=== PATIENT | female | born 1940 | race Caucasian/White ===

== ENCOUNTER 2019-09-19 15:09 | Inpatient (IN) | payer MEDICARE, OTHER ==
[~2019-09-19] VITALS: Ht 167.6 cm; Wt 69.4 kg
[2019-09-19 15:32] LABS: BASOPHILS # (AUTO) 0.1 K/uL (0.0-8.0); BASOPHILS % (AUTO) 1.4 % (0.0-2.0); EOSINOPHILS # (AUTO) 0.2 K/uL (0.0-0.7); EOSINOPHILS % (AUTO) 2.1 % (0.0-7.0); HEMATOCRIT 39.9 % (31.2-41.9); HEMOGLOBIN 13.8 g/dL (10.9-14.3); LYMPHOCYTES # (AUTO) 3.1 K/uL (20.0-40.0); LYMPHOCYTES % (AUTO) 39.6 % (20.5-51.5); MEAN CORPUSCULAR HEMOGLOBIN 32.7 uug (24.7-32.8); MEAN CORPUSCULAR HGB CONC 35 g/dL (32.3-35.6); MEAN CORPUSCULAR VOLUME 94.3 fL (75.5-95.3); MONOCYTES # (AUTO) 0.5 K/uL (2.0-10.0); MONOCYTES % (AUTO) 6.7 % (0.0-11.0); NEUTROPHILS # (AUTO) 3.9 K/uL (1.8-8.9); NEUTROPHILS % (AUTO) 50.2 % (38.5-71.5); PLATELET COUNT (AUTO) 293 K/uL (179-408); RED BLOOD CELL COUNT(AUTO) 4.23 MIL/uL (3.63-4.92); WHITE BLOOD COUNT (AUTO) 7.8 K/uL (3.8-11.8)
[2019-09-19] MEDS ORDERED: ONDA4TAB5 PO (15:42)
[2019-09-19] MEDS ORDERED: CLON0.1T PO (15:42)
[2019-09-19] MEDS ORDERED: LEVO50TA PO (15:42)
[2019-09-19] MEDS ORDERED: CHOL10002 PO (15:42)
[2019-09-19] MEDS ORDERED: ESCI10TA PO (15:42)
[2019-09-19] MEDS ORDERED: AMLO10TA7 PO (15:42)
[2019-09-19] MEDS ORDERED: METO50TA16 PO (15:42)
[2019-09-19] MEDS ORDERED: ATOR20TA PO (15:42)
[2019-09-19] MEDS ORDERED: MIRT15TA PO (15:42)
[2019-09-19 15:46] LABS: CARBON DIOXIDE 23 mmol/L (21-32); CHLORIDE 105 mmol/L (98-107); CREATININE 0.8 mg/dL (0.6-1.3); GLUCOSE 102 mg/dL (74-106); POTASSIUM 2.9 mmol/L (3.5-5.1); UREA NITROGEN, BLOOD 14 mg/dL (7-18)
[2019-09-19 15:55] LABS: ETHANOL < 3 MG/DL (0-0)
[2019-09-19 16:02] LABS: ACETAMINOPHEN 4.4 ug/mL (10-30); ALANINE AMINOTRANSFERASE 16 U/L (14-59); ALKALINE PHOSPHATASE 114 U/L (50-136); ASPARTATE AMINOTRANSFERASE 22 U/L (15-37); BILIRUBIN,DIRECT 0.1 mg/dL (0.0-0.2); BILIRUBIN,TOTAL 0.2 mg/dL (0.2-1.0); TOTAL PROTEIN, SERUM 7.6 g/dL (6.4-8.2)
--- NOTE | 2019-09-19 16:10 | NUR ---
PT AMBULATED WITH WHEELCHAIR TO BATHROOM WITH ASSISSTANCE.
[2019-09-19 16:13] LABS: THYROID STIMULATING HORMONE 6.383 mIU/mL (0.358-3.740)
[2019-09-19] MEDS ORDERED: POTASSIUM BICARBONATE/CIT AC 25 MEQ TABLET.EFF ONE (16:14)
[2019-09-19] MEDS ORDERED: POTASSIUM BICARBONATE/CIT AC 25 MEQ TABLET.EFF PO ONE (16:15)
[2019-09-19 16:42] LABS: *BILIRUBIN,URIN NEGATIVE (NEGATIVE); *CLARITY,URINE CLOUDY (CLEAR); *COLOR,URINE YELLOW (YELLOW); *KETONES,URINE NEGATIVE (NEGATIVE); *UROBILINOGEN,URINE 0.2 E.U./dl (NORMAL); LEUKOCYTE ESTERASE ,URINE 1+ (NEGATIVE); NITRITE, URINE NEGATIVE (NEGATIVE); UGLUCOSE NEGATIVE (NEGATIVE)
[2019-09-19 16:47] LABS: *BLOOD, URINE TRACE (NEGATIVE)
[2019-09-19 16:48] LABS: *AMPHETAMINE, URINE NEGATIVE (NEGATIVE); *BARBITURATE, URINE NEGATIVE (NEGATIVE); *CANNABINOID, URINE NEGATIVE (NEGATIVE); *COCCAINE, URINE NEGATIVE (NEGATIVE); *OPIATE, URINE NEGATIVE (NEGATIVE); *PHENCYCLIDINE SCREEN,URINE NEGATIVE (NEGATIVE); BACTERIA,URINE MANY /HPF (NONE SEEN); SQUAMOUS EPITHELIAL CELL,UR MODERATE /HPF (NONE SEEN); WBC,URINE 50-80 /HPF (0-3)
[2019-09-19] MEDS ORDERED: CEphaleXIN 500 MG CAPSULE PO ONE (17:15)
--- NOTE | 2019-09-19 17:20 | NUR ---
[facility] PROVIDED FOR PT. PT ATE WITH GOOD APETITE.
[2019-09-19] MEDS ORDERED: CEphaleXIN 500 MG CAPSULE ONE (17:31)
[2019-09-19] MEDS ORDERED: LORAZEPAM 0.5 MG TABLET PO PRN (17:45)
[2019-09-19] MEDS ORDERED: MAGNESIUM HYDROXIDE 30 ML LIQUID UDC PO PRN (17:45)
[2019-09-19] MEDS ORDERED: MAG HYDROX/AL HYDROX/SIMETH 30 ML LIQUID UDC PO PRN (17:45)
[2019-09-19] MEDS ORDERED: BLOOD SUGAR DIAGNOSTIC 1 EACH STRIP VI ONE (17:45)
--- NOTE | 2019-09-19 18:00 | NUR ---
TRANSFERED PT TO FLOOR IN STABLE CONDITION.
[2019-09-19] MEDS ORDERED: CLONIDINE HCL 0.1 MG TABLET PO PRN (18:15)
--- NOTE | 2019-09-19 18:30 | NUR ---
Gps/Boardinghouse Keeper-Admitted from ER via wheel chair, under 5150 as DTS, per hold patient patient planned to overdose on pills. Upon face to face with patient, she admitted feelings of being depressed but denies any plan to hurt self. Called Ayleen(daughter) , informed of the admission, was able to talked to patient.Routine admission in progress. Patient oriented to unit settings.Reviewed safety, patient is s/p BKA, uses wheel chair for mobility.
[2019-09-19 18:45] VITALS: BP 131/68
[2019-09-19] MEDS: ATORVASTATIN 20 MG TABLET PO SCH (20:42)
[2019-09-19] MEDS: TEMAZEPAM 7.5 MG CAPSULE PO PRN (20:48)
[2019-09-19] MEDS: ACETAMINOPHEN 325 MG TABLET PO PRN (20:49)
[2019-09-19 21:12] VITALS: BP 126/65
--- NOTE | 2019-09-19 22:59 | NUR ---
Patient received @ 1800 during am shift. Patient alert/oriented x2 with confusion and disoriented noted. Patient denies wanting to harm her self stated " I never said I wanted to kill my self, I just feel depressed." Patient is agitated and anxious with clear speech. Patient denies pain at this time, will continue to monitor. Patient has left BKA when asked how this happened she does not remember, denies diabetes. Patient uses a wheel chair. Patient in no apparent distress, will continue to monitor. Patient oriented to room and unit, safe environment provided, frequent rounding, bed in lowest position, and bed locked.
[2019-09-20] MEDS: ACETAMINOPHEN 325 MG TABLET PO PRN (05:52)
[2019-09-20] MEDS: LEVOTHYROXINE SODIUM 50 MCG TABLET PO SCH (06:47)
[2019-09-20 07:30] VITALS: BP 124/76
--- NOTE | 2019-09-20 07:52 | NUR ---
Gps/Senior Care Specialist- Belle( daughter in law ) called , claimed she is willing to give more information about the patient( Carrie), she had been taking care of her for last 3 years , she has Hx of bipolar, schizophrenia , outburst and cries a lot when she does not get her ways , she'll say " i will kill myself " she's threatening per daughter in-law. She claimed has 9 children and Cayla Bueno (daughter who has the DPOA. [phone]) .Ami (another daughter) was the primary contact that the patient provided, but per Belle (daughter- in law ) Ami has a" drug problem " . Belle (daughter-in law) willing to provide more information , and can be called anytime ).
[2019-09-20 08:13] LABS: CREATININE 0.6 mg/dL (0.6-1.3); MAGNESIUM 1.8 mg/dL (1.8-2.4); PHOSPHOROUS 2.8 mg/dL (2.5-4.9); POTASSIUM 3.3 mmol/L (3.5-5.1)
[2019-09-20] MEDS: CHOLECALCIFEROL 1,000 UNIT TABLET PO SCH (08:26)
[2019-09-20] MEDS: AMLODIPINE 10 MG TABLET PO SCH (08:27)
[2019-09-20] MEDS: METOPROLOL TARTRATE 50 MG TABLET PO SCH ×2 (08:27→22:01)
--- NOTE | 2019-09-20 10:38 | NUR ---
Gps/Assembly Lead Person- Called Cayla Bueno (daughter [phone]) who has the DPOA on patient, asked to fax papers/copy of the DPOA , claimed she does not have a fax machine, and she'll try to fax papers by sunday.
[2019-09-20] MEDS ORDERED: POTASSIUM CHLORIDE 20 MEQ TAB.PRT.SR PO ONE (11:45)
--- NOTE | 2019-09-20 12:15 | NUR ---
Gps/Risk Control Manager- K+ 3.3, Potasium chloride 40 meq. po was administered as ordered.
[2019-09-20] MEDS: ESCITALOPRAM OXALATE 10 MG TABLET PO SCH (12:37)
[2019-09-20] MEDS: CEphaleXIN 500 MG CAPSULE PO SCH ×2 (13:13→21:54)
[2019-09-20 15:25] VITALS: BP 130/70
--- NOTE | 2019-09-20 16:35 | NUR ---
Gps/Lawn Care Professional- Remains up on her wheel chair, wheel self around the unit , attends and participates in her group therapy.
[2019-09-20 20:00] VITALS: BP 118/56
--- NOTE | 2019-09-20 20:15 | NUR ---
RECEIVED PATIENT IN HER ROOM IN BED. SHE IS NOTED CALM AND PLEASANT UPON APPROACHED. SHE IS NOTED A/O X 2, ABLE TO VERBALIZED FEELINGS. SHE DENIES SI. DENIES HI/AH/VH. SHE STATED THAT SHE NEVER SAID THAT SHE WANTED TO OR ANYTHING LIKE IT. PATIENT IS ABLE TO CFS. SHE IS NOTED WITH BLUNTED AFFECT, MOOD IS LOW. V/S STABLE AT THIS TIME. PT IS REASSURED FOR HER SAFETY. SAFETY AND FALL PRECAUTION IN PLACE. WILL CONTINUE TO MONITOR.
[2019-09-20] MEDS: MIRTAZAPINE 15 MG TABLET PO SCH (20:50)
[2019-09-20] MEDS: ATORVASTATIN 20 MG TABLET PO SCH (20:50)
[2019-09-20] MEDS: TEMAZEPAM 7.5 MG CAPSULE PO PRN (21:55)
[2019-09-21] MEDS: LEVOTHYROXINE SODIUM 50 MCG TABLET PO SCH (06:36)
[2019-09-21] MEDS: CEphaleXIN 500 MG CAPSULE PO SCH ×3 (06:36→21:22)
[2019-09-21 06:48] LABS: CREATININE 0.7 mg/dL (0.6-1.3)
[2019-09-21 07:30] VITALS: BP 132/76
[2019-09-21] MEDS: CHOLECALCIFEROL 1,000 UNIT TABLET PO SCH (08:23)
[2019-09-21] MEDS: AMLODIPINE 10 MG TABLET PO SCH (08:24)
[2019-09-21] MEDS: METOPROLOL TARTRATE 50 MG TABLET PO SCH ×2 (08:24→21:22)
--- NOTE | 2019-09-21 11:44 | NUR ---
Gps/Press Assistant And Feeder- Remains up on her wheel chair, attends group therapy, interacting with her selected peer. Compliant with her routine meds. , stills denies any plan to hurt herself. Verbalized feelings of some depression, making her needs known to staff . Had been complaining of lower back pain, relieved when she goes to bed to rest , repositioning ,pressure relief.
[2019-09-21] MEDS: ESCITALOPRAM OXALATE 10 MG TABLET PO SCH (12:49)
[2019-09-21] MEDS: ACETAMINOPHEN 325 MG TABLET PO PRN ×2 (12:58→20:27)
--- NOTE | 2019-09-21 13:48 | NUR ---
Gps/Cigarette Book Maker- Patient was able to talked to her daughter Cayla (DPOA)
[2019-09-21 16:00] VITALS: BP 139/69
--- NOTE | 2019-09-21 16:48 | NUR ---
Gps/Call Circuit Worker-Called [facility] [employer]ASS UNLOADING EQUIPMENT TENDER left message regarding results of urine test, patient has E.coli, urine, sensitivities was called., awaiting return call. for any new orders.
[2019-09-21 20:26] VITALS: BP 129/69
[2019-09-21] MEDS: MIRTAZAPINE 15 MG TABLET PO SCH (20:26)
[2019-09-21] MEDS: ATORVASTATIN 20 MG TABLET PO SCH (20:27)
--- NOTE | 2019-09-21 20:30 | NUR ---
RECEIVED PATIENT IN HER BED. SHE IS NOTED AWAKE A/O X 2. SHE IS NOTED CALM AND PLEASANT UPON APPROACHED. UPON INTERVIEW, PATIENT DENIED SI, SHE ALSO DENIED HI//AH. SHE STATED, "I NEVER SAID THAT I WANTED TO . MY DAUGHTER IN LAW MADE THAT UP BECAUSE SHE WANTED TO GET RID OF ME". PATIENT NOTED WITHDRAWN, LOW MOOD. HOWEVER, SHE DENIED SI. DENIED HI//AH. PATIENT IS REASSURED FOR HER SAFETY. V/S STABLE. SAFETY AND FALL PRECAUTION IN PLACE. WILL CONTINUE TO MONITOR.
--- NOTE | 2019-09-21 20:45 | NUR ---
PER GLEN, PATIENT TO CONTINUE WITH KEFLEX 500MG Q8HRS ORDER. WILL CONTINUE TO MONITOR.
[2019-09-22] MEDS: LEVOTHYROXINE SODIUM 50 MCG TABLET PO SCH (06:43)
[2019-09-22] MEDS: CEphaleXIN 500 MG CAPSULE PO SCH ×3 (06:43→21:34)
[2019-09-22 07:30] VITALS: BP 148/67
[2019-09-22] MEDS: ACETAMINOPHEN 325 MG TABLET PO PRN ×2 (08:46→16:28)
[2019-09-22] MEDS: CHOLECALCIFEROL 1,000 UNIT TABLET PO SCH (08:46)
[2019-09-22] MEDS: AMLODIPINE 10 MG TABLET PO SCH (08:47)
[2019-09-22] MEDS: METOPROLOL TARTRATE 50 MG TABLET PO SCH ×2 (08:47→20:15)
--- NOTE | 2019-09-22 09:00 | NUR ---
Social Work Individual Therapy: fabric worker foreman met with patient for brief counseling. fabric worker foreman assessed for patients level of suicidality. Patient denies SI. This bid writer provided mental health referrals to patient such as [facility] Crisis Line ( ), [place] Suicide Prevention Lifeline ( ) , [facility] Substance Abuse Helpline ( ). fabric worker foreman encouraged patient to contact either family, hotline, or a professional if patient were to have suicidal thoughts. This bid writer also encouraged patient to alert either this bid writer or the nursing staff.
--- NOTE | 2019-09-22 11:28 | NUR ---
Social Work Initial Discharge Plan: Patient currently resides at [address] [place] [id number]; ([phone]). Patient currently resides with her daughter in law Cayla Dobson ([phone]). Patient would like to return home upon discharge. This health science writer contacted patient's shfhyqxo-vp-fpe Cayla Dobson ([phone]) to discuss treatment plan and discharge plan, but was unable to reach so this health science writer left a voicemail. cushion worker will work with the patient and the MD regarding patient's discharge plan.
--- NOTE | 2019-09-22 11:29 | NUR ---
Social Work Family Contact: This science writer contacted patient's [id number]-zdt Cayla Dobson ([phone]) to discuss treatment plan and discharge plan, but was unable to reach so this science writer left a voicemail.
[2019-09-22] MEDS: ESCITALOPRAM OXALATE 10 MG TABLET PO SCH (12:59)
--- NOTE | 2019-09-22 13:38 | NUR ---
GPS: PATIENTS SON CALLED ( KATHE BOWIE) PATIENT SON WERE ASKING ABOUT THE HOLD, TOLD THE PATIENT THAT THE SOONEST THE PSYCHIATRIST MAKE ROUNDS, I WILL LET THEM KNOW ABOUT [facility] WILL HAVE THE PSYCHIATRIST TO CALL HIM BACK, PATIENTS SON AGREED
--- NOTE | 2019-09-22 14:42 | NUR ---
Social Work Individual Therapy: No group is being held due to flores virus precautions. signal worker helper met with patient to discus topic the importance of a support system. Patient presenting problem is suicidal ideation, currently absent patient denies. SW attempted to provide supportive counseling. Patient was sleeping and unable to engage in therapy at this time.
--- NOTE | 2019-09-22 15:08 | NUR ---
Social Work Family Contact: SW spoke with pt's daughter, Cayla Bueno ([phone]) regarding patient's discharge plan tomorrow back home. Cayla stated she will come chicken picker the patient tomorrow at 4:30pm and transport her back home. Patient' other daughter, Belle ([phone]) is also made aware and agreeable with discharge plans.
[2019-09-22 15:44] VITALS: BP 118/70
[2019-09-22 20:00] VITALS: BP 116/58
[2019-09-22] MEDS: ATORVASTATIN 20 MG TABLET PO SCH (20:14)
[2019-09-22] MEDS: MIRTAZAPINE 15 MG TABLET PO SCH (20:15)
[2019-09-22] MEDS: TEMAZEPAM 7.5 MG CAPSULE PO PRN (21:35)
[2019-09-23] MEDS: CEphaleXIN 500 MG CAPSULE PO SCH ×2 (06:17→13:45)
[2019-09-23] MEDS: LEVOTHYROXINE SODIUM 50 MCG TABLET PO SCH (06:17)
[2019-09-23] MEDS: CHOLECALCIFEROL 1,000 UNIT TABLET PO SCH (08:07)
[2019-09-23 08:24] VITALS: BP 108/64
--- NOTE | 2019-09-23 08:39 | NUR ---
Social Work Coordination of Care: christmas tree farm worker spoke to Nancy who stated that Dr. Anderson will follow up with patient on September 27 at 9PM through virtual meeting.
--- NOTE | 2019-09-23 08:39 | NUR ---
Social Work discharge planning: MAUREEN spoke with Kaylyn from [facility] ([phone]) to schedule a follow up appointment with the patient's primary physician Dr. Almaraz however she stated that they are not taking in person appointments at this time. Kaylyn stated the doctor will make a phone follow up within 24 hours.
[2019-09-23] MEDS: AMLODIPINE 10 MG TABLET PO SCH (09:00)
[2019-09-23] MEDS: METOPROLOL TARTRATE 50 MG TABLET PO SCH (09:00)
--- NOTE | 2019-09-23 09:00 | NUR ---
Social Work Firearms Report: Senior Informatica Developer completed and submitted a [employer] firearms report for 5150 grave disability certification. A copy of report has been placed in patient chart.
--- NOTE | 2019-09-23 09:02 | NUR ---
Social Work Discharge Note: Patient will be discharged home to [address] [place], [place] [address]ale [place] [id number]; ([phone]). Patients [id number] Cayla, will fruit picker patient at 4:30PM. Patients dueeejac-cz-kut Cayla, ([phone]) is aware and agreeable to patients discharge. Upon discharge, patient appear to be calm, cooperative and happy to be going home. Patient denies suicidal and homicidal ideation. Patients doctor (pewter finisher) Dr. Almaraz ([phone]) will contact patient within 24 hours to schedule a virtual meeting. Patient will follow up with (psychiatrist) Dr. Anderson ([phone]) on September 27 at 9AM. Due to COVID-19 patients doctors are doing virtual meeting with the patient. Patient was referred for home health services by [facility] (ph: [phone]; fax: [phone]) for medication management, physical therapy, and nursing follow ups. Patient was provided with outpatient mental health resources to [facility] Crisis Line , and the National Suicide Prevention Lifeline . Patient presented with euthymic mood and congruent affect.
[2019-09-23] MEDS: ACETAMINOPHEN 325 MG TABLET PO PRN ×2 (09:18→15:32)
--- NOTE | 2019-09-23 11:05 | NUR ---
Social Work Individual Therapy: No group is being held due to COVID-19 virus precautions. automotive worker met with patient to discuss topic Dealing with Crisis. Patient presenting problem is suicidal ideation, but currently denies. SW attempted to provide supportive counseling. Patient was sleeping and unable to engage in therapy at this time.
[2019-09-23] MEDS: ESCITALOPRAM OXALATE 10 MG TABLET PO SCH (12:30)
[2019-09-23 15:00] VITALS: BP 110/59
--- NOTE | 2019-09-23 15:44 | NUR ---
GPS: patient AOx3-4, patient was discharge to home with Family, patient dneies SI and HI, calm and cooperative, in good dpirit aware of the DC
== END 2019-09-23 15:45 | disposition home health service (06) | DRG 885 ==
LOC: ER 15:13 → GPS 17:29
PROVIDERS: ADMIT Psychiatry & Neurology Psychosomatic Medicine; ATTEND Nurse Practitioner Acute Care
DX: F33.3 Major depressive disorder, recurrent, severe with psychotic symptoms (principal); N39.0 Urinary tract infection, site not specified; Z16.11 Resistance to penicillins; E44.1 Mild protein-calorie malnutrition; F23 Brief psychotic disorder; B96.20 Unspecified Escherichia coli [E. coli] as the cause of diseases classified elsewhere; E03.9 Hypothyroidism, unspecified; E87.6 Hypokalemia; G89.29 Other chronic pain; I10 Essential (primary) hypertension; E88.09 Other disorders of plasma-protein metabolism, not elsewhere classified; Z68.24 Body mass index [BMI] 24.0-24.9, adult; Z89.512 Acquired absence of left leg below knee; Z79.890 Hormone replacement therapy
CPT/HCPCS: 36415; 70030-TC; 71045; 80307; 83735; 84100; 84443; 85025; 85730; 87077; 87086; 93005; G0480-TC